=== PATIENT | female | born 1985 | race Caucasian/White ===

== ENCOUNTER 2022-03-30 12:06 | Emergency (ER) | payer MEDICAID ==
[~2022-03-30] VITALS: Ht 162.6 cm; Wt 62.0 kg
[2022-03-30] MEDS ORDERED: BENZ200C52 MT (18:18)
[2022-03-30] MEDS ORDERED: IBUP-2029 MT (18:18)
[2022-03-30 18:39] VITALS: BP 149/57
== END 2022-03-30 19:38 | disposition home or self-care (01) ==
LOC: ER 12:06
DX: R05.9 Cough, unspecified (principal); B34.9 Viral infection, unspecified
CPT/HCPCS: 71045; 99283